=== PATIENT | male | born 1945 | race Caucasian/White ===

== ENCOUNTER 2017-02-27 10:31 | Outpatient (CLI) | payer MEDICARE, OTHER ==
[~2017-02-27] VITALS: Ht 172.7 cm; Wt 98.2 kg
--- NOTE | ~2017-02-27 | HP ---
PATIENT: RONDA STANLEY MEDICAL RECORD: [id number] ACCOUNT: [id number] LOCATION:JAIME : 45 ADMISSION DATE: 02/27/17 HISTORY AND PHYSICAL EXAMINATION HISTORY OF PRESENT ILLNESS: This is a 71-year-old gentleman with a history of cardiomyopathy improved on therapy. He has been having recurrent anginal symptomatology. Cardiomyopathy has actually improved on therapy. It was thought need to delineate anatomy. PAST MEDICAL HISTORY: 1. History of hypertension. 2. Hyperlipidemia. 3. Coronary artery disease status post intervention. CURRENT MEDICATIONS: Atenolol 50 milligrams every day. Crestor 10 milligrams every day. Lisinopril 20/25 milligrams every day. Aspirin 81 milligrams every day. PHYSICAL EXAMINATION: GENERAL: This is a pleasant gentleman in no acute distress. VITAL SIGNS: Blood pressure 116/64. Pulse 64 and regular. HEAD, EYES, EARS, NOSE, AND THROAT: Normocephalic, atraumatic. NECK: No jugular venous distention or bruit. HEART: Regular. LUNGS: Lung [place] clear. PULSES: 2+, no edema. DIAGNOSTIC STUDIES: Nuclear stress testing show reversible inferior and anterior ischemia. PLAN: Will plan for diagnostic angiography with intervention based upon the above. HALINA KATZ MD CC: [id number] DICTATION DATE: 02/27/17 1000 SLITTER PROCESSED FILM: NARESH 02/28/17 1322 DEP CLI 02/27/17 [facility] [address] [place] [address]
--- NOTE | ~2017-02-27 | HEMODYNAMI ---
PATIENT:RONDA STANLEY MEDICAL RECORD: [id number] : 45 LOCATION:DCALDERON ADMISSION DATE: 02/27/17 Generatedon:02/27/201714:23 Patient name: RONDA STANLEY Patient #: [id number] SSN: : 1945 Date of study: 02/27/2017 Page: Of Hemodynamic Procedure Report Patient Data Patient Demographics Procedure consent was obtained First Name: RONDA Gender: Male Last Name: LIZETH : 1945 Middle Initial: RAJENDRA Age: 71 year(s) Patient #: [id number] Race: Unknown Additional ID: [id number] Contact details Address: [address] [place] [address] State: [place] City: [place] Zip code: [address] Admission Admission Data Admission Date: 02/27/2017 Admission Time: 10:31 Admit Source: Other Height (in.): 68 BSA: 2.11 (m2) Height (cm.): 172.72 BMI: 32.85 (kg/m2) Weight (lbs.): 216.05 Weight (kg.): 98 Lab Results Lab Result Date: 02/27/2017 Lab Result Time: 11:20 Biochemistry Name Units Result Min Max BUN mg/dl 18 --(---*)-- 7 18 Creatinine mg/dl 1.3 --(---*)-- 0.6 1.3 CBC Name Units Result Min Max Hematocrit % 47.7 --(-*--)-- 42 54 Hemoglobin g/dl 16.9 --(---*)-- 13.5 17.5 Procedure Procedure Types Cath Procedure Diagnostic Procedure [facility] ED w/Coronaries PCI Procedure Coronary Stent Initial Miscellaneous Procedures Moderate Sedation up to 30 minutes Procedure Description Procedure Date Procedure Date: 02/27/2017 Procedure Start Time: 13:52 Procedure End Time: 14:23 Procedure Staff Name Function Flakito Brunson MD Performing Physician Aguila Boateng RT Scrub Andra Farley RN Nurse Aleksey Ness RN Site Safety Representative John Fischer RT Monitor Procedure Data Cath Procedure Fluoroscopy Diagnostic fluoroscopy Total fluoroscopy Time: 7.6 time: 7.6 min min Diagnostic fluoroscopy Total fluoroscopy dose: dose: 1061 mGy 1061 mGy Contrast Material Contrast Material Type Amount (ml) Isovue 300 123 Entry Location Entry Primary Successful Side Size Upsize Upsize Entry Closure Ashley ccessful Closure Location (Fr) 1 (Fr) 2 (Fr) Remarks Device Remarks Radial Right 6 Fr Mechanical artery Short Compression Femoral Right 6 Fr Exoseal artery Short Estimated blood loss: 10 ml Diagnostic catheters Device Type Used For End Catheter Placement Diagnostic Terumo 5Fr Procedure [place] 110cm catheter Procedure Complications No complications Procedure Medications Medication Administration Route Dosage Oxygen NC 2 l/min Lidocaine 2% added to field 20 Heparin Flush Bag added to field 2 bags (1000units/500ml NS) 0.9% NaCl I.V. 100 ml/hr Versed I.V. 1 mg Fentanyl I.V. 50 mcg Radial Cocktail I.A. 1 syringe (Verapomil 2mg/Nitro 400mcg/Heparin 1500units) Versed I.V. 1 mg Fentanyl I.V. 50 mcg Fentanyl I.V. 50 mcg Heparin Bolus I.V. 5000 units Versed I.V. 1 mg Fentanyl I.V. 50 mcg Hemodynamics Rest BSA: 2.11 (m2) HGB: 16.9 (g/dl) O2 Consumption: Estimated: 232.42 (ml/min) O2 Co nsumption indexed: Estimated:110.15 (ml/min/m) Heart Rate: 56 (bpm) Pressure Samples Time Site Value (mmHg) Purpose Heart Use Rate(bpm) 13:54 LV 135/-6,16 Snapshot 52 13:54 AO 126/50(84) Pullback 53 13:54 LV 134/-2,17 Pullback 53 13:57 AO 123/66(90) Snapshot 58 Gradients Valve Time Site 1 Site 2 Mean SEP/DFP Peak To Heart Use (mmHg) (sec/min) Peak Rate (mmHg) (bpm) Aortic 13:54 LV AO 20 7 8 53 134/-2,17 126/50(84) Calculations Valve P-P Mean Valve Index Valve Source Name Gradient Area Flow (cm2) Aortic 8 20 8 20 Snapshots Pre Cath Intra NCS Post Cath Vital Signs Time Heart Resp SPO2 NIBP (mmHg) Rhythm Pain Sedation Rate (ipm) (%) Status Level (bpm) 13:39:26 53 16 99 194/88(155) NSR 0 (11) 10(A) , No pain 13:43:54 50 16 97 171/80(121) NSR 0 (11) 10(A) , No pain 13:48:16 55 15 96 153/89(125) NSR 0 (11) 10(A) , No pain 13:52:40 50 15 97 152/74(118) NSR 0 (11) 9(A) , No pain 13:57:49 58 16 94 143/76(117) NSR 0 (11) 9(A) , No pain 14:02:13 56 16 96 134/70(107) NSR 0 (11) 9(A) , No pain 14:06:28 59 18 95 129/78(102) NSR 0 (11) 9(A) , No pain 14:10:46 59 16 96 133/76(110) NSR 0 (11) 9(A) , No pain 14:15:02 61 15 98 141/77(119) NSR 0 (11) 10(A) , No pain 14:19:22 60 11 98 133/82(113) NSR 0 (11) 10(A) , No pain Medications Time Medication Route Dose Verified Delivered Reason Note s Effectiveness by by 13:41:38 Oxygen NC 2 l/min Flakito Silverman used for St. Rajendra Farley RN procedure 13:41:46 Lidocaine 2% added 20ml Flakito Fraga for local to vial [facility] anesthetic field MD REYES 13:41:52 Heparin Flush added 2 bags Flakito Fraga used for Bag to [facility] procedure (1000units/500ml field MD REYES NS) 13:42:05 0.9% NaCl I.V. 100 Flakito Silverman Per physician ml/hr St. Rajendra Farley RN, MD 13:46:37 Versed I.V. 1 mg Flakito Silverman for sedation St. Rajendra Farley RN, MD 13:47:14 Fentanyl I.V. 50 mcg Flakito Silverman for sedation St. Rajendra Farley RN, MD 13:53:42 Radial Cocktail I.A. 1 Flakito Fraga for (Verapomil syringe [facility] vasodilation 2mg/Nitro MD REEYS 400mcg/Heparin 1500units) 13:53:48 Versed I.V. 1 mg Flakito Buffie for sedation St. Rajendra Farley RN, MD 13:53:53 Fentanyl I.V. 50 mcg Flakito Buffie for sedation St. Rajendra Farley RN, MD 13:59:40 Fentanyl I.V. 50 mcg Flakito Buffie for sedation St. Rajendra Farley RN, MD 14:00:53 Heparin Bolus I.V. 5000 Flakito Buffie for veri fied units St. Rajendra Farley RN anticoagulation with dr MD shahid 14:10:14 Versed I.V. 1 mg Flakito Buffie for sedation St. Rajendra Farley RN, MD 14:10:18 Fentanyl I.V. 50 mcg Flakito Noyolaie for sedation St. Rajendra Farley RN, MD Procedure Log Time Note 13:10:29 Aleksey Ness RN sent for patient. Start room use. 13:19:41 Lab Result : BUN 18 mg/dl 13:19:41 Lab Result : Creatinine 1.3 mg/dl 13:19:41 Lab Result : Hemoglobin 16.9 g/dl 13:19:41 Lab Result : Hematocrit 47.7 % 13:19:45 Patient Weight : 98 kg 13:19:48 Patient Height : 172.72 cm 13:19:55 Admit Source: Other 13:20:26 Diagnostic Cath status Elective 13:20:34 Time tracking: Regular hours 13:20:37 Plan of Care:Hemodynamics will remain stable., Cardiac rhythm will remain stable., Comfort level will be maintained., Respiratory function will remain adequate., Patient/ family verbilizes understanding of procedure., Procedure tolerated without complication., Recovers from procedure without complications.. 13:21:59 Is patient on blood thinner?Yes 13:22:02 ACC The patient was administered the following blood thiners within the last 24 hours: ACCAspirin, ACCPlavix 13:37:16 Patient received from Pre/Post Procedure Room to CCL 3 Alert and oriented. Tansferred to table in Supine position. 13:37:17 Warm blankets applied, and lb hugger turned on for patient comfort. 13:37:17 Correct patient and procedure confirmed by team. 13:37:19 Signed procedure consent form obtained from patient. 13:37:20 ECG and BP/O2 sat monitors applied to patient. 13:37:22 Vital chart was started 13:41:38 Oxygen 2 l/min NC was administered by Andra Farley RN; used for procedure; 13:41:46 Lidocaine 2% 20ml vial added to field was administered by Flakito Brunson MD; for local anesthetic; 13:41:52 Heparin Flush Bag (1000units/500ml NS) 2 bags added to field was administered by Flakito Brunson MD; used for procedure; 13:42:05 0.9% NaCl 100 ml/hr I.V. was administered by Andra Farley RN; Per physician; 13:42:13 Baseline sample Acquired. 13:42:22 Rhythm: sinus bradycardia 13:42:24 Full Disclosure recording started 13:45:03 H&P Date Dictated: 02/27/2017 New H&P dictated by physician.. 13:45:12 Pre-procedure instructions explained to patient. 13:45:13 Pre-op teaching completed and patient verbalized understanding. 13:45:27 Family in patients room. 13:45:28 Patient NPO since Midnight. 13:45:30 Is the patient allergic to Iodine/contrast media? No. 13:45:34 Patient diabetic? No. 13:45:36 Previous problem with sedation/anesthesia? No ? 13:45:36 Snore? Yes 13:45:37 Sleep apnea? No 13:45:38 Deviated septum? No 13:45:39 Opens mouth fully? Yes 13:45:40 Sticks out tongue? Yes 13:45:41 Airway obstruction? No ? 13:45:44 Dentures? Yes OUT 13:45:50 Pre procedure: right dorsailis pedis pulse 1+ Palpable, but thready & weak; easily obliterated 13:45:53 Modified Elias's test Ulnar < 7 seconds 13:45:54 Patient pain scale 0/10 ?. 13:46:05 IV patent on arrival in left hand with 0.9% NaCl at [facility]. 13:46:07 Lab results completed and on chart. 13:46:10 Right Radial & Right Groin area was prepped with chlora-prep and draped in sterile fashion 13:46:11 Alarms reviewed by R. N. 13:46:11 Sharps counted by scrub and verified by R.N. 13:46:13 --------ALL STOP TIME OUT------ 13:46:13 Final Timeout: patient, procedure, and site verified with staff and physician. All members of the team are in agreement. 13:46:15 Right Radial & Right Groin site verified by team. 13:46:18 Physical assessment completed. ASA score P 2 - A patient with mild systemic disease as per Flakito Brunson MD. 13:46:21 Sedation plan: IV Moderate Sedation Versed, Fentanyl 13:46:37 Versed 1 mg I.V. was administered by Andra Farley RN; for sedation; 13:47:14 Fentanyl 50 mcg I.V. was administered by Andra Farley RN; for sedation; 13:52:11 Use device set Radial Dx 13:52:12 Tegaderm 4 x 4 opened to sterile field. 13:52:13 Acist Manifold opened to sterile field. 13:52:14 Acist Hand Control opened to sterile field. 13:52:15 Acist Syringe opened to sterile field. 13:52:15 Medline Cath Pack opened to sterile field. 13:52:15 Bag Decanter opened to sterile field. 13:52:16 Terumo 6Fr Slender Glidesheath opened to sterile field. 13:52:16 [facility] 260cm J .035 wire opened to sterile field. 13:52:20 Procedure started. 13:52:25 Local anesthetic to right radial artery with Lidocaine 2% by Flakito Brunson MD.INITIAL ACCESS ONLY 13:52:45 A 6 Fr Short sheath was inserted into the Right Radial artery 13:52:51 Zero performed for pressure channel P1 13:53:42 Radial Cocktail (Verapomil 2mg/Nitro 400mcg/Heparin 1500units) 1 syringe I.A. was administered by Flakito Brunson MD; for vasodilation; 13:53:48 Versed 1 mg I.V. was administered by Andra Farley RN; for sedation; 13:53:52 A Diagnostic Terumo 5Fr [place] 110cm catheter was advanced over the wire and used for Procedure. 13:53:53 Fentanyl 50 mcg I.V. was administered by Andra Farley RN; for sedation; 13:54:09 LV angiography performed. 13:54:10 LV gram done using CAMPBELL 13:54:21 EF : 40 % 13:54:23 LV hemodynamics recorded. 13:54:26 Injector settings: Ml/sec: 7, Volume: 15, 13:55:08 RCA angiography performed. 13:56:43 LCA angiography performed. 13:57:28 Catheter exchanged over wire. 13:57:51 Medtronic Launcher 6Fr EBU 4.0 guide catheter opened to sterile field. 13:57:51 [email or web address] BasixCompak Inflation Kit opened to sterile field. 13:57:51 Restrepo Whisper J 300cm 0.014 guide wire opened to sterile field. 13:58:11 ACC PCI Site: pLAD has 99% stenosis. 13:59:40 Fentanyl 50 mcg I.V. was administered by Andra Farley RN; for sedation; 14:00:13 Unable to get back up support, moving to Femoral approach. 14:00:21 Local anesthetic to right femoral artery with Lidocaine 2% by Flakito Brunson MD.ADDITIONAL ACCESS 14:00:53 Heparin Bolus 5000 units I.V. was administered by Andra Farley RN; for anticoagulation; verified with dr shahid 14:01:19 Terumo 6Fr [place] Sheath opened to sterile field. 14:01:30 A 6 Fr Short sheath was inserted into the Right Femoral artery 14:02:05 6 Fr EBU 4 guide catheter was inserted over the wire 14:03:05 Whisper wire advanced. 14:04:51 Wire advanced across lesion. 14:06:02 Inflation number: 1 A Ford Sci [place] 2.5 X 12 balloon was prepped and advanced across the Prox LAD, then inflated to 10 SHAHANA for 0:30 (min:sec). 14:09:07 Balloon removed over the wire. 14:10:14 Versed 1 mg I.V. was administered by Andra Farley RN; for sedation; 14:10:18 Fentanyl 50 mcg I.V. was administered by Andra Farley RN; for sedation; 14:12:18 Inflation Number: 2 A Medtronic Integrity 3.5 X 12 stent was prepped and advanced across the Prox LAD. The stent was deployed at 14 SHAHANA for 0:45 (min:sec). 14:12:50 Terumo TR Band Standard opened to sterile field. 14:12:51 Cordis 6Fr Exoseal opened to sterile field. 14:13:00 Sheath removed intact; hemostasis achieved with Exoseal to the Right Femoral artery. 14:13:10 Sheath removed intact; hemostasis achieved with Mechanical Compression to the Right Radial artery. 14:13:13 Procedure ended.(Physican Out) 14:13:15 Sharps counted by scrub and verified by R.N. 14:13:22 Fluoroscopy time 07.60 minutes. 14:16:35 Fluoroscopy dose: 1061 mGy 14:16:35 Flurop Dose total: 1061 14:16:45 Contrast amount:Isovue 300 123ml. 14:16:53 Insertion/operative site no bleeding no hematoma. 14:16:55 TR band inflated with 12cc of air. 14:16:58 Post-op/insertion site Right Femoral artery dressed using a 4 x 4 and Tegaderm. 14:16:59 Post Procedure Pulses reassessed and unchanged 14:17:02 Post-procedure physical assessment completed. ASA score P 2 - A patient with mild systemic disease as per Flakito Brunson MD. 14:17:04 Post procedure rhythm: unchanged. 14:17:07 Estimated blood loss: 10 ml 14:17:10 Post procedure instruction explained to patient.Patient verbalizes understanding. 14:17:10 Patient needs reinforcement of post procedure teaching. 14:17:29 Procedure type changed to Cath procedure, Diagnostic procedure, LHC, LHC w/Coronaries, PCI procedure, Coronary Stent Initial, Miscellaneous Procedures, Moderate Sedation up to 30 minutes 14:17:30 Procedure and supply charges have been captured, reviewed, submitted and are correct. 14:17:35 Procedure Complication : No complications 14:23:08 Vital chart was stopped 14:23:08 See physician's report for complete and final results. 14:23:14 Report given to Pre/Post Procedure Room. 14:23:17 Patient transfered to Pre/Post Procedure Room with Stretcher. 14:23:25 Procedure ended. 14:23:25 Full Disclosure recording stopped 14:23:31 End room use (Document Last) Intervention Summary Intervention Notes Time ActionType Lesion and Equipment Action# Pressure Duration Attributes Used 14:06:02 Inflate Prox LAD Ford 1 10 00:30 balloon Sci [place] 2.5 X 12 balloon 14:12:18 Place stent Prox LAD Medtronic 2 14 00:45 Integrity 3.5 X 12 stent Device Usage Item Name Manufacture Quantity Catalog Number Hospital Part Current Mini mal Lot# / Charge Number Stock Stock Serial# Code Tegaderm 4 1 [id number] 218911 5 x 4 Acist Acist 1 16198 226516 498430 535804 5 Manifold Medical Systems Inc Acist Hand Acist 1 82269 044417 796199 873164 5 Control Medical Systems Inc Acist Acist 1 59765 985244 862175 955284 20 Syringe Medical Systems Inc Medline Cardinal 1 [id number] 386629 44031 475358 5 Cath Pack Health Bag Microtek 1 2002S [id number] 15531 415670 5 Decanter [employer] Inc. Terumo 6Fr Terumo 1 [id number] 386178 045518 702760 [address] [facility] 1 693791 755232 667456 291858 30 260cm J .035 wire Diagnostic Terumo 1 40-3746 651167 347140 126402 5 Terumo 5Fr [place] 110cm catheter Medtronic Medtronic 1 [id number] 747831 74006 032664 1 Launcher 6Fr EBU 4.0 guide catheter Merit Merit 1 [id number] 206623 710540 896244 15 BasixCompak Medical Inflation Kit Restrepo Restrepo 1 [id number] 188020 146194 680447 5 Whisper J Vascular 300cm 0.014 guide wire Terumo 6Fr Terumo 1 ITE479 388195 779638 303273 40 [place] Sheath Ford Sci Ford 1 [id number] 104176 074073 023747 1 [id number] [employer] 2.5 X 12 balloon Medtronic Medtronic 1 [id number] 992603 772315 0 [id number] Integrity 3.5 X 12 stent Terumo TR Terumo 1 [id number] 587698 569375 703275 40 Band Standard Cordis 6Fr Cardinal 1 EX600 726406 059553 308775 10 [facility] Signature Audit [place] Stage Time Signature Unsigned Intra-Procedure 02/27/2017 John Fischer 2:23:48 PM RT(R) Signatures Monitor : John Fischer RT Signature : Date : Time : [place] [address] [place] [address]
--- NOTE | ~2017-02-27 | OP ---
PATIENT NAME: RODNA STANLEY MEDICAL RECORD: [id number] :45 LOCATION:D.CAT ADMISSION DATE: SURGEON: HALINA KATZ MD OPERATION DATE: 02/27/17 PROCEDURES: 1. Left heart catheterization. 2. Selective coronary angiography. PROCEDURE IN DETAIL: After informed consent was obtained and after detailed explanation of risks, benefits, as well as alternative therapies, the patient elected to proceed with angiogram. The right femoral area was prepped and draped in a normal sterile fashion. The right femoral artery was cannulated via modified Seldinger technique with placement of 5-Korean sheath. 5-4 left to right Usama, 5-4 pigtail catheter. All catheters exchanged through this sheath. Procedure was well-tolerated. The patient was returned to the hernandez, sheath removed, and ExoSeal device placed. FINDINGS: Left ventriculography was performed in standard 30 degree CAMPBELL view, mild global left ventricular hypokinesis. Overall left ventricular function reduced at 40-45%. CORONARY ANATOMY: 1. LEFT MAIN: The left main is a very short vessel, free of disease. 2. LEFT ANTERIOR DESCENDING: The left anterior descending has a true ostial stenosis of approximately 90+%. 3. CIRCUMFLEX: Free of disease. 4. RIGHT CORONARY ARTERY: Luminal irregularities. No stenosis greater than 40%. IMPRESSION: Critical disease of the left anterior descending corresponding nicely with nuclear study. Plan intervention momentarily. A 5-Korean sheath was exchanged for a 6-Korean sheath. EBU guided catheter provided good guidance of the catheter forward followed by a 300 centimeter whisper wire was placed across the tightly occluded left anterior descending down to the distal portion of this vessel. Pre-deployment balloon was a 2.[address] [place] up to 10 atmospheres. The stent deployed was a 3.5 X 12 millimeter Integrity [id number] stent up to 14 atmospheres for 45 seconds. FINAL ANGIOGRAPHY: This shows excellent resolution of a 90+% stenosis to no significant residual. AAMIR flow was 3 after the procedure. Heparin was used during the case. The patient was previously on Plavix. HALINA KATZ MD CC: [id number] DICTATION DATE: 02/27/17 1400 PARKING ENFORCEMENT SPECIALIST: DM 02/28/17 1325 DEP CLI 02/27/17 [facility] [address] [place] [address]
[2017-02-27] MEDS ORDERED: CRESTOR10 MG PO (11:07)
[2017-02-27] MEDS ORDERED: AMBIEN10 MG PO (11:07)
[2017-02-27] MEDS ORDERED: PLAVIX75 MG PO (11:08)
[2017-02-27] MEDS ORDERED: ZESTORETIC 20/21 TAB PO (11:09)
[2017-02-27] MEDS ORDERED: TENORMIN50 MG PO (11:09)
[2017-02-27] MEDS ORDERED: MULTIPLE VITAMI1 TA1 PO (11:10)
[2017-02-27] MEDS ORDERED: BAYER CHEWABLE81 MG PO (11:10)
[2017-02-27] MEDS ORDERED: NIACIN100 MG PO (11:11)
[2017-02-27 11:29] VITALS: BP 182/87; Ht 172.7 cm; Wt 98.2 kg
[2017-02-27 11:29] LABS: BASOPHILS 0.3 % (0-2); EOSINOPHILS 5.5 % (0-7); HEMATOCRIT 47.7 % (42.0-54.0); HEMOGLOBIN 16.9 g/dL (13.5-17.5); IMMATURE GRANULOCYTES 0.2 % (0-5); LYMPHOCYTES 34.1 % (15-50); MCH 33.3 pg (26.0-34.0); MCHC 35.4 g/dL (31.0-37.0); MCV 94.1 fL (80.0-100.0); MEAN PLATELET VOLUME 10.2 fL (7.4-10.4); MONOCYTES 16.5 % (2-11); NEUTROPHILS 43.4 % (40-80); PLATELET COUNT 141 10x3/uL (130-400); RBC 5.07 10x6/uL (4.20-6.10)
[2017-02-27 11:39] LABS: ANION GAP 12.5 mmol/L (8-16); CALCIUM 9.9 mg/dL (8.5-10.1); CARBON DIOXIDE 29.6 mmol/L (21.0-32.0); CREATININE - SERUM 1.3 mg/dL (0.6-1.3); POTASSIUM - SERUM 4.1 mmol/L (3.5-5.1)
== END 2017-02-27 18:30 | disposition home or self-care (01) ==
LOC: D.CATH 10:31
PROVIDERS: Internal Medicine Interventional Cardiology
DX: I25.119 Atherosclerotic heart disease of native coronary artery with unspecified angina pectoris (principal); I10 Essential (primary) hypertension; E78.5 Hyperlipidemia, unspecified; Z79.82 Long term (current) use of aspirin; Z79.899 Other long term (current) drug therapy; Z01.812 Encounter for preprocedural laboratory examination

== ENCOUNTER → 2018-07-03 11:43 | Outpatient (CLI) | payer MEDICARE, OTHER ==
[2017-02-27 11:29] VITALS: BMI 32.9
[~2018-07-03 11:43] MED LIST: AMBIEN10 MG PO; BAYER CHEWABLE81 MG PO; CRESTOR10 MG PO; MULTIPLE VITAMI1 TA1 PO; NIACIN100 MG PO; PLAVIX75 MG PO; TENORMIN50 MG PO; ZESTORETIC 20/21 TAB PO
== END | disposition home or self-care (01) ==
LOC: D.CT 11:43
DX: R10.31 Right lower quadrant pain (principal)

== ENCOUNTER → 2018-07-05 10:08 | Outpatient (CLI) | payer MEDICARE, OTHER ==
[2017-02-27 11:29] VITALS: BMI 32.9
== END | disposition home or self-care (01) ==
LOC: D.US 10:08
DX: N28.1 Cyst of kidney, acquired (principal)

== ENCOUNTER → 2018-08-02 09:45 | Outpatient (CLI) | payer MEDICARE, OTHER ==
[2017-02-27 11:29] VITALS: BMI 32.9
== END | disposition home or self-care (01) ==
LOC: D.MRI 09:45
DX: N28.89 Other specified disorders of kidney and ureter (principal)

== ENCOUNTER → 2018-08-29 13:00 | Outpatient (CLI) | payer MEDICARE, OTHER ==
[2017-02-27 11:29] VITALS: BMI 32.9
== END | disposition home or self-care (01) ==
LOC: D.CT 13:00
DX: I73.9 Peripheral vascular disease, unspecified (principal)

== ENCOUNTER → 2018-09-05 08:51 | Outpatient (CLI) | payer MEDICARE, OTHER ==
[2017-02-27 11:29] VITALS: BMI 32.9
== END | disposition home or self-care (01) ==
LOC: D.MRI 08:51
DX: N28.89 Other specified disorders of kidney and ureter (principal)

== ENCOUNTER → 2018-11-09 08:39 | Outpatient (CLI) | payer MEDICARE, OTHER ==
[2017-02-27 11:29] VITALS: BMI 32.9
== END | disposition home or self-care (01) ==
LOC: D.MRI 08:39
PROVIDERS: ATTEND Clinical Nurse Specialist Family Health
DX: M25.521 Pain in right elbow (principal)

== ENCOUNTER 2018-12-05 10:55 | Emergency (ER) | payer MEDICARE, OTHER ==
[~2018-12-05] VITALS: Ht 172.7 cm; Wt 100.5 kg
[2018-12-05 10:58] VITALS: Ht 172.7 cm; Wt 100.5 kg
[2018-12-05] MEDS ORDERED: COZAAR100 MG PO (11:04)
[2018-12-05] MEDS ORDERED: FLOVENT DISKU100 MCG (11:05)
[2018-12-05 11:36] LABS: BASOPHILS 0.3 % (0-2); EOSINOPHILS 5.5 % (0-7); HEMATOCRIT 43.7 % (42.0-54.0); HEMOGLOBIN 15.8 g/dL (13.5-17.5); IMMATURE GRANULOCYTES 0.1 % (0-5); LYMPHOCYTES 20.1 % (15-50); MCH 32.8 pg (26.0-34.0); MCHC 36.2 g/dL (31.0-37.0); MCV 90.7 fL (80.0-100.0); MEAN PLATELET VOLUME 9.7 fL (7.4-10.4); PLATELET COUNT 134 10x3/uL (130-400); RBC 4.82 10x6/uL (4.20-6.10); RDW 12.6 % (11.5-14.5); WBC 7.3 10x3/uL (4.8-10.8)
[2018-12-05 11:40] LABS: ALBUMIN 3.6 g/dL (3.4-5.0); ALKALINE PHOSPHATASE 53 U/L (46-116); ALT (SGPT) 24 U/L (10-68); BILIRUBIN - TOTAL 0.41 mg/dL (0.2-1.3); CALC OSMOLALITY 286 mosm/kg (275-300); CALCIUM 9.3 mg/dL (8.5-10.1); CHLORIDE - SERUM 103 mmol/L (98-107); CREATININE - SERUM 1.3 mg/dL (0.6-1.3); GLUCOSE 111 mg/dL (74-106); POTASSIUM - SERUM 3.6 mmol/L (3.5-5.1); PROTEIN - SERUM 7.6 g/dL (6.4-8.2); SODIUM 141 mmol/L (136-145); UREA NITROGEN 26 mg/dL (7-18); eGFR NON AFRICAN AMERICAN 57 mL/min (90-120)
[2018-12-05 11:50] LABS: CKMB 0.7 U/L (0.0-3.6); CREATINE KINASE 96 UL (21-232); INR 0.98 (0.85-1.17); PROTIME 12.5 SECONDS (11.6-15.0); TROPONIN-I < 0.017 ng/mL (0.000-0.060)
[2018-12-05 12:27] VITALS: BP 174/81
--- NOTE | 2018-12-05 14:39 | CN ---
PATIENT NAME:RONDA STANLEY MEDICAL RECORD: [id number] : 45 LOCATION:D.ER ADMIT DATE: ACCOUNT: [id number] CONSULTING PHYSICIAN: NATHANAEL GONZALEZ MD REFERRING PHYSICIAN: RAHUL TITUS MD DATE OF CONSULTATION: 12/05/2018 CARDIOLOGY CONSULTATION ADMITTING DIAGNOSES: 1. Atypical chest pain. 2. Coronary artery disease. 3. Previous percutaneous transluminal coronary angioplasty stent. 4. Hypertension. 5. Hyperlipidemia. HISTORY OF PRESENT ILLNESS: This is a gentleman with previous multivessel PTCA stent, who presents more with left-sided abdominal pain, some radiation to the arm. No real chest pain and is definitely different than his previous anginal symptomatology. He came to the ER to make sure that this is not cardiac in nature. Troponin is normal. EKG is with no changes from previous EKGs. PHYSICAL EXAMINATION: GENERAL APPEARANCE: Well-nourished, well-developed, appears stated age. Level of distress, comfortable. PSYCHIATRIC: Mental status, alert, normal affect. Orientation, oriented to time, place and person. EYES: Lids and conjunctiva, noninjected. No discharge, no pallor. ENT: Lips, teeth, gums, normal dentition. Oropharynx, no cyanosis, no pallor. NECK: Carotid arteries, bilateral normal upstroke, no bruits, no thrills. JUGULAR VEINS: No jugular venous pressure or distention. CERVICAL LYMPH NODES: Nontender, nonenlarged. THYROID: Not enlarged. Nontender. No nodules. LUNGS: Respiratory effort, unlabored. CHEST: Normal curvature. No thoracic deformity. No chest wall tenderness. Percussion, resonant. Auscultation, clear. No wheezes, no rales, no rhonchi. CARDIOVASCULAR: Precordial exam, nondisplaced. No heaves or pericardial thrills. Rate and rhythm, regular. Heart sounds, normal S1, normal S2. No S3, no gallop, no rub. Systolic murmur, not heard. Diastolic murmur, not heard. EXTREMITIES: No cyanosis, no edema. Peripheral pulses, full and equal in all extremities, except as noted. No bruits appreciated. ABDOMEN: Soft, nondistended. Normal aorta. No bruit. Nontender. No masses. Liver, nontender, no hepatomegaly. Spleen, nontender, no splenomegaly. MUSCULOSKELETAL: No joint tenderness. No joint swelling. No erythema. NEUROLOGICAL: Normal gait, normal strength, normal tone. SKIN: Warm and dry. OVERALL IMPRESSION: Atypical chest pain. No reason to believe that this is cardiac in nature. At this time, no other cardiac workup or treatment is necessary. TRANSINT:[id number] Voice Confirmation ID: [id number] DOCUMENT ID: [id number] CONSULT REPORT [id number] RONDA STANLEY JEFFREY MD at 1439 CC: [id number] DICTATION DATE: 12/05/18 1152 PARK SERVICES SPECIALIST: 12/05/18 1324 DEP ER 12/05/18 [facility] [address] [place] [address]
== END 2018-12-05 12:29 | disposition home or self-care (01) ==
LOC: D.ER 10:55
PROVIDERS: Emergency Medicine
DX: R10.84 Generalized abdominal pain (principal); I10 Essential (primary) hypertension; I25.10 Atherosclerotic heart disease of native coronary artery without angina pectoris

== ENCOUNTER → 2019-01-21 09:25 | Outpatient (CLI) | payer MEDICARE, OTHER ==
[2018-12-05 10:58] VITALS: BMI 33.6
[~2019-01-21 09:25] MED LIST changes: +COZAAR100 MG PO; +FLOVENT DISKU100 MCG
--- NOTE | 2019-01-23 14:16 | EC ---
PATIENT:RONDA STANLEY DATE OF SERVICE: 01/21/19 SEX: M MEDICAL RECORD: [id number] DATE OF : [birth year] LOCATION:D.[facility]LY [facility] AGE OF PATIENT: 73 ADMISSION DATE: 01/21/19 REFERRING PHYSICIAN: INTERPRETING PHYSICIAN: HALINA KATZ MD ECHOCARDIOGRAM REPORT ECHO CHARGES 4 ECHO COMPLETE Date: 01/21/19 CLINICAL DIAGNOSIS: CARDIOMYOPATHY HX OF LBBB ECHOCARDIOGRAPHIC MEASUREMENTS (adult normal given) AC root (d.<3.7cm) 3.3 cm LV Septum d (<1.2 cm> 1.4 cm Valve Excursion 1.4 cm LV Septum (systole) 1.5 cm Left Atria (s.<4.0cm> 3.5 cm LVPW d(<1.2cm) 1.4 cm RV (d.<2.3cm) 3.8 cm LVPW (sytole) 1.6 cm LV diastole(<5.6CM) 6.0 cm MV E-F(>70mm/sec) cm LV systole 5.0 cm LVOT Diameter 1.9 cm MV exc.(>10mm) 1.4 cm Est.ejection fraction (50-75%) % DOPPLER: LVIT cm/sec A 122 cm/sec E 77.0 cm/sec LA cm/sec RVSP 37 mmHg LVOT 102 cm/sec AOP1/2T m/s Asc. Ao 122 cm/sec RVOT 107 cm/sec RA cm/sec PA 142 cm/sec AV Gradient Peak 6.00 mmHg AV Mean 2.85 mmHg AV Area 2.4 cm MV Gradient Peak 7.12 mmHg MV Mean 1.74 mmHg MV Area cm COMMENTS: Mineral Wool Insulation Supervisor: 2 MAMADOU BARTON Cryptographic Technician: 3 Dr. Brunson TAPE# PACS Pericardial Effusion N DATE OF SERVICE: Adequate 2D, color flow, spectral Doppler, and M-Mode. Mild LVH. LV internal dimensions are normal. LV is mildly globally hypo with EF flow in the lower limits of normal, mildly reduced at 45% to 50%. Aortic valve sclerosis without stenosis by Doppler interrogation. Left atrium normal at 3.5 cm. Mitral valve shows no prolapse. Trace MR. Right-sided chamber is grossly normal. Trace TR. TRANSINT:[id number] Voice Confirmation ID: [id number] DOCUMENT ID: [id number] ECHOCARDIOGRAM REPORT [id number] RONDA STANLEY,HALINA Butt MD at 1416 CC: [id number] DICTATION DATE: 01/21/19 1448 GAS OR PETROLEUM OPERATOR: 01/21/19 1502 DEP CLI 01/21/19 [place] [id number] [place] [id number]
== END | disposition home or self-care (01) ==
LOC: D.HCCARDIO 09:25
PROVIDERS: ATTEND Internal Medicine Interventional Cardiology
DX: I42.9 Cardiomyopathy, unspecified (principal)

== ENCOUNTER → 2019-03-06 11:53 | Outpatient (CLI) | payer MEDICARE, OTHER ==
[2018-12-05 10:58] VITALS: BMI 33.6
== END | disposition home or self-care (01) ==
LOC: D.CT 11:53
PROVIDERS: ATTEND General Practice
DX: N28.89 Other specified disorders of kidney and ureter (principal)

== ENCOUNTER → 2020-01-16 10:26 | Outpatient (CLI) | payer MEDICARE, OTHER ==
[2018-12-05 10:58] VITALS: BMI 33.6
== END | disposition home or self-care (01) ==
LOC: D.CT 10:26
PROVIDERS: ATTEND General Practice
DX: N28.89 Other specified disorders of kidney and ureter (principal)

== ENCOUNTER → 2020-05-25 12:36 | Outpatient (CLI) | payer MEDICARE, OTHER ==
[2018-12-05 10:58] VITALS: BMI 33.6
== END | disposition home or self-care (01) ==
LOC: D.CT 12:36
PROVIDERS: ATTEND General Practice
DX: D49.512 Neoplasm of unspecified behavior of left kidney (principal)

== ENCOUNTER → 2020-11-10 10:32 | Outpatient (CLI) | payer MEDICARE, OTHER ==
[2018-12-05 10:58] VITALS: BMI 33.6
--- NOTE | 2020-11-11 10:02 | EC ---
PATIENT:RONDA STANLEY DATE OF SERVICE: 11/10/20 SEX: M MEDICAL RECORD: [id number] DATE OF : [birth year] LOCATION:D.[facility] AGE OF PATIENT: 75 ADMISSION DATE: 11/10/20 REFERRING PHYSICIAN: INTERPRETING PHYSICIAN: HALINA KATZ MD ECHOCARDIOGRAM REPORT ECHO CHARGES 4 ECHO COMPLETE Date: 11/10/20 CLINICAL DIAGNOSIS: CARDIOMYOPATHY, ASSESS EF ECHOCARDIOGRAPHIC MEASUREMENTS (adult normal given) AC root (d.<3.7cm) 3.0 cm LV Septum d (<1.2 cm> 1.3 cm Valve Excursion 1.6 cm LV Septum (systole) 1.7 cm Left Atria (s.<4.0cm> 4.0 cm LVPW d(<1.2cm) 1.5 cm RV (d.<2.3cm) 3.0 cm LVPW (sytole) 2.0 cm LV diastole(<5.6CM) 5.8 cm MV E-F(>70mm/sec) cm LV systole 3.9 cm LVOT Diameter 1.7 cm MV exc.(>10mm) 1.2 cm Est.ejection fraction (50-75%) % DOPPLER: LVIT cm/sec A 126.0cm/sec E 65.0 cm/sec LA cm/sec RVSP 17 mmHg LVOT 120 cm/sec AOP1/2T m/s Asc. Ao 136 cm/sec RVOT 92 cm/sec RA cm/sec PA 115 cm/sec AV Gradient Peak 7.41 mmHg AV Mean 3.72 mmHg AV Area 1.7 cm MV Gradient Peak 6.37 mmHg MV Mean 1.74 mmHg MV Area cm COMMENTS: Impregnator Helper: 2 MAMADOU BARTON Electric Motor Rebuilder: 3 Dr. Brunson TAPE# PACS Pericardial Effusion N DATE OF SERVICE: Adequate 2D, color flow imaging, spectral Doppler, and M-Mode. FINDINGS: LVH is present. LV internal dimension is normal. Wall motion is mildly globally hypo with EF lower limits of normal to mildly reduced at 45% to 50%. Aortic valve is sclerosed without stenosis by Doppler interrogation. Left atrium is upper limits of normal at 4.0 cm. Mitral valve shows no prolapse. Trace MR. Right side is grossly normal. Trace TR. TRANSINT:[id number] Voice Confirmation ID: [id number] DOCUMENT ID: [id number] ECHOCARDIOGRAM REPORT [id number] RONDA STANLEY,HALINA Butt MD at 1002 CC: [id number] DICTATION DATE: 11/10/20 1527 DRILLING FLUIDS SPECIALIST: 11/10/20 2308 DEP CLI 11/10/20 [place] [id number] [place] [id number]
== END | disposition home or self-care (01) ==
LOC: D.HCCECHO 10:30
PROVIDERS: ATTEND Internal Medicine Interventional Cardiology
DX: I42.9 Cardiomyopathy, unspecified (principal)

== ENCOUNTER → 2020-12-02 09:52 | Outpatient (CLI) | payer MEDICARE, OTHER ==
[2018-12-05 10:58] VITALS: BMI 33.6
[2020-12-02 11:57] LABS: ANION GAP 13.3 mmol/L (8-16); CALCIUM 9.5 mg/dL (8.5-10.1); CARBON DIOXIDE 27.6 mmol/L (21.0-32.0); CREATININE - SERUM 1.3 mg/dL (0.6-1.3); POTASSIUM - SERUM 4.9 mmol/L (3.5-5.1)
== END | disposition home or self-care (01) ==
LOC: D.CT 09:52
PROVIDERS: ATTEND General Practice
DX: N28.89 Other specified disorders of kidney and ureter (principal)